=== PATIENT | female | born 1955 | race Caucasian/White ===

== ENCOUNTER 2018-08-30 13:04 | Inpatient (IN) | payer OTHER ==
[~2018-08-30] VITALS: Ht 165.1 cm; Wt 95.2 kg
[~2018-08-30 13:04] MED LIST changes: -ACET325 PO; -Anti-Diarrheal2 MG PO; -CIPR500 PO; -Florastor250 MG PO; -METR500 PO; -NAPR220 PO; -POTA20LUD PO; -Prilosec Otc20 MG PO; -ZQUIL PO
[2018-08-30] MEDS ORDERED: Prilosec Otc20 MG PO (16:38)
[2018-08-30 16:55] LABS: Phosphorus, Blood 2.3 mg/dL (2.5-4.9)
[2018-08-30 18:36] LABS: Source, Urine Catheter
[2018-08-30 18:40] LABS: Appearance, Urine Clear (Clear); Bilirubin, Urine Neg (Neg); Blood, Urine Neg (Neg); Color, Urine Yellow (P-Yellow); Glucose Qualitative, Urine Neg (Neg); Ketones, Urine Neg (Neg); Leukocyte Esterase, Urine 1+ (Neg); Nitrite, Urine Neg (Neg); Protein, Urine Neg (Neg); Urobilinogen, Urine NORM (Normal)
[2018-08-30 19:30] LABS: Bacteria Rare /hpf; Red Blood Cells, Urine Not Seen /hpf (0-2); Squamous Epithelial Cells Few /hpf (Few)
[2018-08-30 20:34] LABS: Adenovirus F 40/41 Not Detected (NOT DETECT); Astrovirus Not Detected (NOT DETECT); Campylobacter Sp Not Detected (NOT DETECT); Cryptosporidium Not Detected (NOT DETECT); Cyclospora Cayetanensis Not Detected (NOT DETECT); E. Coli O157 Not Detected (NOT DETECT); Entamoeba Histolytica Not Detected (NOT DETECT); Enteroaggregative E. coli-EAEC Not Detected (NOT DETECT); Enteropathogenic E. coli-EPEC Not Detected (NOT DETECT); Enterotoxigenic E. coli-ETEC Not Detected (NOT DETECT); Giardia Lamblia Not Detected (NOT DETECT); Norovirus GI/GII Not Detected (NOT DETECT); Plesiomonas Shigelloides Not Detected (NOT DETECT); Rotavirus A Not Detected (NOT DETECT); Salmonella Sp Not Detected (NOT DETECT); Sapovirus Not Detected (NOT DETECT); Shiga Toxin-prod E. coli-STEC Not Detected (NOT DETECT); Shigella/Enteroin E. coli-EIEC Not Detected (NOT DETECT); Vibrio Cholerae Not Detected (NOT DETECT); Vibrio Sp Not Detected (NOT DETECT); Yersinia Enterocolitica Not Detected (NOT DETECT)
[2018-08-30] MEDS ORDERED: NAPR220 PO (20:45)
[2018-08-30] MEDS ORDERED: ZQUIL PO (20:47)
[2018-08-30 21:38] LABS: Albumin, Blood 3.4 g/dL (3.4-5.0); Albumin/Globulin Ratio 1.1 (0.8-1.8); Bilirubin, Total 0.6 mg/dL (0.1-1.0); Bun/Creatinine Ratio 14.3 (12.0-20.0); Calcium, Blood 8.4 mg/dL (8.5-10.1); Creatinine, Blood 1.82 mg/dL (0.40-1.00); Globulin, Blood 3.1 g/dL (2.2-4.0); Potassium, Blood 2.8 mmol/L (3.5-5.5); Total Protein, Blood 6.5 g/dL (6.4-8.2)
--- NOTE | 2018-08-31 04:49 | NUR ---
Shift summary: Pt had a potassium of 2.4 last pm and recieved 3 potassium riders during the night. Pt tolerated well. No nausea/vomiting or diarhea reported. Pt has been able to sleep most of night. Pt's stool sample came back negative for cdiff. Pt removed from isolation. VSS.
[2018-08-31 05:42] LABS: Bun/Creatinine Ratio 13.8 (12.0-20.0); Calcium, Blood 8.4 mg/dL (8.5-10.1); Creatinine, Blood 1.6 mg/dL (0.40-1.00); Potassium, Blood 3.2 mmol/L (3.5-5.5)
[2018-08-31 08:03] LABS: Magnesium, Blood 1.6 mg/dL (1.6-2.4); Phosphorus, Blood 3.1 mg/dL (2.5-4.9)
--- NOTE | 2018-09-01 04:02 | NUR ---
Shift summary: Pt has had a good night and has been able to sleep most of night. Pt states she has had a couple episodes of diarhea but no nausea or vomiting during the shift. Pt recieving antibx's x 2. No other c/o discomfort.
[2018-09-01 04:45] LABS: BASOPHILS ABSOLUTE AUTO 0.02 K/mm3 (0.00-0.23); BASOPHILS PERCENT AUTO 0 % (0-2); EOSINOPHILS ABSOLUTE AUTO 0.21 K/mm3 (0.00-0.68); EOSINOPHILS PERCENT AUTO 3 % (0-6); Hemoglobin 11.5 g/dL (11.5-16.0); IMMATURE GRAN ABSOLUTE AUTO 0.02 K/mm3 (0.00-0.10); IMMATURE GRAN PERCENT AUTO 0 % (0-1); LYMPHOCYTES ABSOLUTE AUTO 3.66 K/mm3 (0.84-5.20); LYMPHOCYTES PERCENT AUTO 48 % (21-46); MONOCYTES ABSOLUTE AUTO 0.79 K/mm3 (0.16-1.47); MONOCYTES PERCENT AUTO 10 % (4-13); Mean Corpuscular HGB 33.2 pg (26.0-34.0); Mean Corpuscular HGB Conc 33.8 g/dL (31.5-36.5); Mean Platelet Volume 11.8 fL (9.1-12.4); NEUTROPHILS ABSOLUTE AUTO 2.87 K/mm3 (1.96-9.15); NEUTROPHILS PERCENT AUTO 38 % (41-73); Platelet Count 216 K/mm3 (150-400); RDW Coefficient Variation 11.4 % (11.7-14.2); RDW Standard Deviation 41.5 fL (35.1-46.3); Red Blood Cell Count 3.46 M/mm3 (3.80-5.20); White Blood Cell Count 7.57 K/mm3 (4.00-11.30)
[2018-09-01 04:46] LABS: Mean Corpuscular Volume 98 fL (80-100)
[2018-09-01 05:07] LABS: Albumin, Blood 2.9 g/dL (3.4-5.0); Albumin/Globulin Ratio 0.9 (0.8-1.8); Bilirubin, Total 0.7 mg/dL (0.1-1.0); Bun/Creatinine Ratio 7.9 (12.0-20.0); Calcium, Blood 8.1 mg/dL (8.5-10.1); Creatinine, Blood 1.27 mg/dL (0.40-1.00); Globulin, Blood 3.1 g/dL (2.2-4.0); Potassium, Blood 2.9 mmol/L (3.5-5.5)
[2018-09-01] MEDS ORDERED: CIPR500 PO (15:25)
[2018-09-01] MEDS ORDERED: ACET325 PO (15:25)
[2018-09-01] MEDS ORDERED: METR500 PO (15:26)
[2018-09-01] MEDS ORDERED: Anti-Diarrheal2 MG PO (15:26)
[2018-09-01] MEDS ORDERED: Florastor250 MG PO (15:26)
[2018-09-01] MEDS ORDERED: POTA20LUD PO (15:27)
--- NOTE | 2018-09-01 15:51 | NUR ---
DISCHARGE NOTE PT'S IV DC'D WNL. PT PROVIDED WITH HARDCOPY AND VERBAL INSTRUCTIONS FOR DISCHARGE: REGARDING DIAGNOSES, PRESCRIPTION MEDICATIONS, FOLLOW UP APPOINTMENTS AND LABS. PRESCRIPTIONS FAXED TO PREFERED PHARMACY. PT ESCORTED TO PERSONAL VEHICLE WITH ASSISTANCE FROM SENIOR MAINFRAME DEVELOPER VIA WHEELCHAIR. PT HAD NO FURTHER QUESTIONS.
== END 2018-09-01 16:00 | disposition home or self-care (01) | DRG 392 ==
LOC: ER 13:04 → MEDS 16:36 → ENPENDDIS 09-01 14:25 → MEDS 09-01 16:00
PROVIDERS: Internal Medicine; Nurse Practitioner Acute Care; ADMIT Hospitalist
DX: K52.9 Noninfective gastroenteritis and colitis, unspecified (principal); N17.9 Acute kidney failure, unspecified; E87.6 Hypokalemia; E78.5 Hyperlipidemia, unspecified; F17.210 Nicotine dependence, cigarettes, uncomplicated; I10 Essential (primary) hypertension; K21.9 Gastro-esophageal reflux disease without esophagitis; E86.9 Volume depletion, unspecified; E86.0 Dehydration
CPT/HCPCS: 36415; 74176; 80048; 80053; 81001; 82550; 82570; 83735; 84100; 84300; 85025; 87086; 87507; 93005; 93010; J0744; J1650; J2405; J3480; J7030; J7120

== ENCOUNTER → 2018-08-30 | Outpatient (CLI) | payer OTHER ==
[~2018-08-30] MED LIST: ACET325 PO; ATOR20 PO; Anti-Diarrheal2 MG PO; BUPR150ER; CIPR500 PO; Florastor250 MG PO; HYDACE5 PO; LOSARTAN-HCTZ1 EAC1 PO; METR500 PO; NAPR220 PO; OMEP20ER PO; OXYACE5T PO; POTA20LUD PO; PROM25 PO; Prilosec Otc20 MG PO; ZQUIL PO
[2018-08-30 12:03] LABS: BASOPHILS ABSOLUTE AUTO 0.02 K/mm3 (0.00-0.23); BASOPHILS PERCENT AUTO 0 % (0-2); EOSINOPHILS ABSOLUTE AUTO 0.08 K/mm3 (0.00-0.68); EOSINOPHILS PERCENT AUTO 1 % (0-6); Hematocrit 42.2 % (33.0-51.0); Hemoglobin 14.8 g/dL (11.5-16.0); IMMATURE GRAN ABSOLUTE AUTO 0.02 K/mm3 (0.00-0.10); IMMATURE GRAN PERCENT AUTO 0 % (0-1); LYMPHOCYTES ABSOLUTE AUTO 2.68 K/mm3 (0.84-5.20); LYMPHOCYTES PERCENT AUTO 26 % (21-46); MONOCYTES PERCENT AUTO 8 % (4-13); Mean Corpuscular HGB 33.3 pg (26.0-34.0); Mean Corpuscular HGB Conc 35.1 g/dL (31.5-36.5); Mean Corpuscular Volume 95 fL (80-100); Mean Platelet Volume 11.5 fL (9.1-12.4); NEUTROPHILS PERCENT AUTO 65 % (41-73); Platelet Count 277 K/mm3 (150-400); RDW Coefficient Variation 11.5 % (11.7-14.2); RDW Standard Deviation 39.9 fL (35.1-46.3); Red Blood Cell Count 4.45 M/mm3 (3.80-5.20)
[2018-08-30 12:33] LABS: Albumin/Globulin Ratio 1.1 (0.8-1.8); Bilirubin, Total 0.8 mg/dL (0.1-1.0); Calcium, Blood 8.6 mg/dL (8.5-10.1); Creatinine, Blood 2.2 mg/dL (0.40-1.00); Globulin, Blood 3.7 g/dL (2.2-4.0); Potassium, Blood 2.4 mmol/L (3.5-5.5); Total Protein, Blood 7.7 g/dL (6.4-8.2)
== END ==
LOC: LAB SHORT 11:25 → LAB 11:25
PROVIDERS: Physician Assistant
DX: R10.84 Generalized abdominal pain (principal)
CPT/HCPCS: 80053; 83690; 85025

== ENCOUNTER 2021-05-25 10:58 | Day surgery (SDC) | payer OTHER ==
[~2021-05-25] VITALS: Ht 165.1 cm; Wt 99.1 kg
[~2021-05-25 10:58] MED LIST changes: +ACET325 PO; +Anti-Diarrheal2 MG PO; +CIPR500 PO; +Florastor250 MG PO; +METR500 PO; +NAPR220 PO; +POTA20LUD PO; +Prilosec Otc20 MG PO; +ZQUIL PO
== END 2021-05-25 14:25 | disposition home or self-care (01) ==
LOC: ORSCSDS 10:58
PROVIDERS: Internal Medicine Gastroenterology
PROC: 0DBN8ZX Excision of Sigmoid Colon, Via Natural or Artificial Opening Endoscopic, Diagnostic (ICD-10-PCS; principal; 2021-05-25 12:15)
PROC: 0DBL8ZX Excision of Transverse Colon, Via Natural or Artificial Opening Endoscopic, Diagnostic (ICD-10-PCS; principal; 2021-05-25 12:15)
PROC: 0DBK8ZX Excision of Ascending Colon, Via Natural or Artificial Opening Endoscopic, Diagnostic (ICD-10-PCS; principal; 2021-05-25 12:15)
PROC: 0DBM8ZX Excision of Descending Colon, Via Natural or Artificial Opening Endoscopic, Diagnostic (ICD-10-PCS; principal; 2021-05-25 12:15)
PROC: 0DBP8ZX Excision of Rectum, Via Natural or Artificial Opening Endoscopic, Diagnostic (ICD-10-PCS; principal; 2021-05-25 12:15)
DX: Z12.11 Encounter for screening for malignant neoplasm of colon (principal); Z86.010 Personal history of colon polyps; D12.3 Benign neoplasm of transverse colon; D12.2 Benign neoplasm of ascending colon; D12.4 Benign neoplasm of descending colon; D12.5 Benign neoplasm of sigmoid colon; D12.8 Benign neoplasm of rectum; K57.30 Diverticulosis of large intestine without perforation or abscess without bleeding; K64.8 Other hemorrhoids; I10 Essential (primary) hypertension; F17.210 Nicotine dependence, cigarettes, uncomplicated; E78.5 Hyperlipidemia, unspecified; Z79.899 Other long term (current) drug therapy
CPT/HCPCS: 88305; J2704; J7120